=== PATIENT | female | born 1965 | race African-American/Black ===

== ENCOUNTER 2018-03-31 12:35 | Day surgery (SDC) | payer OTHER ==
[~2018-03-31 12:35] MED LIST: ACETAMINOPHEN 1,000 MG/100 ML INJ IV ONE; CLINDAMYCIN PHOSPHATE 900 MG/6 ML VIAL ONE; DESFLURANE 240 ML LIQUID IH ONE; DEXAMETHASONE SOD PHOS 4 MG/ML VIAL ONE; LACTATED RINGERS 1,000 ML IV.SOLN IV ONE; LIDOCAINE HCL 2% PF 100MG/5ML VIAL IJ ONE; MIDAZOLAM HCL 2 MG/2 ML VIAL ONE; ONDANSETRON HCL/PF 4 MG/ 2ML VIAL ONE; PROPOFOL 200 MG/20 ML VIAL IV ONE; ROCURONIUM BROMIDE 10 MG/ML 5ML VIAL ONE; SCOPOLAMINE HYDROBROMIDE 1.5MG/72HR PATCH TD ONE; SUGAMMADEX SODIUM 200 MG/2 ML VIAL IV ONE; fentaNYL CITRATE/PF 100 MCG/2 ML INJ. ONE
== END 2018-03-31 12:36 ==
LOC: OPSURG 12:35
PROVIDERS: ATTEND Surgery
DX: K95.09 Other complications of gastric band procedure (principal); E66.01 Morbid (severe) obesity due to excess calories
CPT/HCPCS: 43774; A9270; J1100; J2001; J2250; J2405; J2704; J3010; J7120